=== PATIENT | female | born 1985 | race Two or more races ===

== ENCOUNTER 2024-04-15 13:27 | Outpatient (CLI) | payer OTHER | END 2024-04-15 14:08 | disposition home or self-care (01) | LOC: PRENATAL 13:27 | PROVIDERS: ATTEND Obstetrics & Gynecology Maternal & Fetal Medicine | DX: O36.80X0 Pregnancy with inconclusive fetal viability, not applicable or unspecified (principal); Z36.9 Encounter for antenatal screening, unspecified; Z36.82 Encounter for antenatal screening for nuchal translucency; O09.519 Supervision of elderly primigravida, unspecified trimester; Z3A.12 12 weeks gestation of pregnancy ==